=== PATIENT | male | born 1990 | race Caucasian/White ===

== ENCOUNTER 2019-10-09 20:50 | Inpatient (IN) | payer SELFPAY | END 2019-10-10 20:04 | disposition home or self-care (01) | DRG 880 | LOC: NP 10-10 09:54 | PROVIDERS: Emergency Provider Emergency Medicine; PCP Family Medicine; Referring Provider Family Medicine | DX: F68.8 Other specified disorders of adult personality and behavior (principal); R45.851 Suicidal ideations | CPT/HCPCS: 99234 ==

== ENCOUNTER 2020-05-20 10:14 | Emergency (ER) | payer SELFPAY ==
[2020-05-20 10:30] VITALS: BP 129/88; PULSE 85; RESP 18; TEMP 36.6; O2SAT 97; BMI 41.5
--- NOTE | 2020-05-20 10:47 | W.ED.ABDPA2 ---
HPI - Abdominal Pain General: Chief Complaint: Abdominal Pain Stated Complaint: abd pain Time Seen by Provider: 05/20/20 10:41 History of Present Illness: HPI narrative: Patient is a 29-year-old male who comes to the ED with abdominal pain, nausea and vomiting. Abdominal pain started on Wednesday. Is located in the right upper quadrant region the abdomen and he describes it as sharp. He has had multiple episodes of emesis since Wednesday. This morning he woke up and has nausea and abdominal pain was worse so he came to the ED to get evaluated. Denies any past abdominal surgeries. Denies any diarrhea, constipation, dysuria, hematuria, acid reflux, chest pain, shortness of breath, upper respiratory symptoms, fever and chills. Patient also denies any marijuana use. Associated Symptoms: Reports nausea and vomiting; Denies chills, constipation, diarrhea, dysuria, fever(s), hematochezia and hematuria Review of Systems Const: Denies: fever(s), chills or fatigue Eyes: Denies: change in vision or eye discomfort ENMT: Denies: throat pain, odynophagia, nasal discharge or nasal congestion Card: Denies: chest pain, palpitations, edema, swelling of feet/ankles, dyspnea on exertion or orthopnea Resp: Denies: dyspnea, productive cough or non-productive cough GI: Reports: abdominal pain, nausea and vomiting; Denies: diarrhea, constipation or hematochezia : Denies: flank pain, difficulty urinating, dysuria or hematuria Musc: Denies: neck pain, back pain or extremity swelling Skin/Breast: Denies: rash or new lesions Neuro: Denies: headache(s), numbness in extremities or weakness in extremities PFS ED PFSH: Social History Smoking and tobacco status: current every day smoker smokeless tobacco Physical Exam Const: COMMON NORMALS: no acute distress, patient oriented x3 and alert GENERAL APPEARANCE: cooperative and comfortable HENMT: COMMON NORMALS: normocephalic HEAD & SCALP: normocephalic MOUTH: Normal oral and palatal mucosa present THROAT: posterior oropharynx normal and uvula midline Eye: COMMON NORMALS: Equal, round and reactive pupils present and conjunctivae normal CONJUNCTIVA: Yes conjunctivae normal PUPIL: Yes Equal, round and reactive pupils present Neck/C-Spine: COMMON NORMALS: supple GENERAL: Yes normal visual inspection Resp: COMMON NORMALS: normal respiratory effort, No retractions, No use of accessory muscles and clear to auscultation bilaterally AUSCULTATION: clear to auscultation bilaterally Cardio: COMMON NORMALS: regular rate, regular rhythm, S1 normal heart sound present, S2 normal heart sound present, No gallops present (Cardio), No clicks present (Cardio), No murmurs present (Cardio) and Peripheral pulses 2+ throughout RATE: regular rate RHYTHM: regular rhythm HEART SOUNDS: S1 normal heart sound present and S2 normal heart sound present PERIPHERAL PULSES: Peripheral pulses 2+ throughout GI: COMMON NORMALS: Normal to inspection, nondistended, normoactive bowel sounds present, Soft to palpation and no masses PALPATION: Yes Soft to palpation and Yes Tenderness to palpation present (GI) Details: RUQ (Jackson sign positive) : COMMON NORMALS: Yes no CVA tenderness BLADDER/KIDNEY EXAM: Yes no CVA tenderness Back/Pelvis: COMMON NORMALS: no CVA tenderness Extremity: COMMON NORMALS: normal to inspection and no pedal edema Neuro: COMMON NORMALS: patient oriented x3 SENSORIUM/ORIENTATION: Yes alert GAIT: Yes Normal gait present Skin: COMMON NORMALS: no rashes or lesions noted GENERAL SKIN EXAM: no rashes or lesions noted and dry skin Course Reevaluation(s): Reevaluation #1: After IV fluids, nausea meds and pain meds patient was feeling a lot better and was able to keep p.o. fluids down while here in the ED. Vital Signs: Vital signs: Vital Signs Temperature 97.9 F 05/20/20 10:30 Pulse Rate 91 05/20/20 12:53 Respiratory Rate 18 05/20/20 12:53 Blood Pressure 112/57 05/20/20 12:53 Pulse Oximetry 98 05/20/20 12:53 MDM - Abdominal Pain MDM Narrative: Medical decision making narrative: Patient is a 29-year-old ED with nausea vomiting and right upper quadrant abdominal pain. Physical exam was remarkable for right upper quadrant tenderness and positive Jackson sign. CBC, CMP and UA were all unremarkable. Lipase was 20. Ultrasound of the gallbladder showed mild hepatomegaly, but gallbladder was normal, no gallstones seen and bile duct was normal. Patient's nausea pain were controlled with IV fluids, nausea meds and pain meds. Patient felt better and was able to keep fluids down here in the ED. Patient was discharged with biliary colic and given prescription for Zofran for nausea. Follow-up with PCP in 7 to 10 days for reevaluation. Return to ED precautions given. Patient understood and agreed with plan. Lab Data: Attestation: I reviewed the patient's lab results. Labs: Lab Results 05/20/20 05/20/20 05/20/20 Range/Units 11:05 11:05 11:08 WBC 9.7 (4.0-10.0) 10^3/ uL RBC 5.68 H (4.1-5.3) 10^6/u L Hgb 16.5 (11.7-16.6) g/dL Hct 49.6 (42.0-52.0) % MCV 87.3 (80-94) fL MCH 29.0 (28.0-34.0) pg MCHC 33.3 (30.0-36.0) g/dL RDW 12.3 (12.1-15.1) % Plt Count 352 (130-400) 10^3/c mm MPV 9.0 (7.4-10.4) fL Neut % (Auto) 70.8 % Lymph % (Auto) 18.2 % [place] % (Auto) 6.9 % Eos % (Auto) 3.3 % Baso % (Auto) 0.6 % Neut # (Auto) 6.82 (1.8-7.7) 10^3/u L Lymph # (Auto) 1.8 (0.8-4.8) 10^3/u L [place] # (Auto) 0.7 (0.2-0.9) 10^3/u L Eos # (Auto) 0.3 (0.0-0.8) 10^3/u L Baso # (Auto) 0.1 (0.0-0.1) 10^3/u L Nucleated RBC % (a uto) 0 % Nucleated RBCs # 0.0 /100WBC Sodium 137 (136-145) mmol/L Potassium 3.5 (3.5-5.1) mmol/L Chloride 102 (98-107) mmol/L Carbon Dioxide 25 (22-29) mmol/L Anion Gap 13.5 (5-19) BUN 8 (6-20) mg/dL Creatinine 0.9 (0.7-1.2) mg/dL GFR Calculation 101.2 (90-130) mL/min Glucose 121 H (65-115) mg/dL Calculated Osmolal ity 281 L (285-295) mOsm/k g Calcium 10.2 (8.5-10.5) mg/dL Total Bilirubin 0.6 (0.15-1.2) mg/dL AST 11 (0-40) U/L ALT 8 (0-41) U/L Alkaline Phosphata se 68 (40-130) IU/L Total Protein 7.5 (6.6-8.7) g/dL Albumin 4.3 (3.5-5.2) g/dL Globulin 3.2 (1.3-4.6) g/dL Lipase 20 (13-60) U/L Urine Color Yellow (Yellow) Urine Appearance Clear (CLEAR) Urine pH 5 (5-7) Ur Specific Gravit y 1.030 (1.005-1.030) Urine Protein Neg (Negative) Urine Glucose (UA) Norm (Normal) Urine Ketones Negative (Negative) Urine Blood Neg (Negative) Urine Nitrate Negative (Negative) Urine Bilirubin Neg (NEGATIVE) Urine Urobilinogen 1 H (Negative) mg/dL Ur Leukocyte Teresa ase Negative (Negative) Imaging Data ^: US: Attestation: I personally reviewed and interpreted this imaging study as follows: Radiologist's impression: [address] [address] Ultrasound Report Signed Patient: Rudy Velazquez Unit #: [id number] : 1990 Age/Sex: 29 / M ADM Date: 05/20/20 Loc: ER Room/Bed: Attending Dr: Ordering Provider/Ordering MD: Jessee Vergara Date of Service: 05/20/20 Procedure(s): US gall bladder [id number] Accession Number(s): [id number] Report Number: [id number] WS: [id number] ULTRASOUND ABDOMEN LIMITED CLINICAL INFORMATION: RUQ pain and n/v COMPARISON: None. FINDINGS: Liver Size: Mild hepatomegaly Craniocaudal length: 17.1 cm. Echogenicity: Normal. Surface nodularity: None. Mass (size and location): None. Bile ducts Intrahepatic ducts: Normal. Common bile duct diameter: 0.3 cm. Gallbladder Normal. Gallstones: None. Gallbladder sludge: None. Gallbladder wall thickening: None. Pericholecystic fluid: None. Sonographic Jackson sign: Absent. Pancreas Normal as visualized. Right kidney: Normal. Hydronephrosis: None. Size: 10.2 cm x 5.0 cm x 5.9 cm. Abdominal aorta and IVC Visualized portions are normal. Ascites: None. US/US gall bladder [id number] IMPRESSION: 1. Mild hepatomegaly. No intrahepatic biliary ductal dilatation. 2. Normal gallbladder. Normal common bile duct 3. No hydronephrosis in right kidney. Dictated By: Beau Nino MD Signed By: Beau Nino MD Signed Date/Time: 05/20/201213 DD/ 11 Discharge Plan Discharge Patient Disposition: Home Clinical Impression: Biliary colic symptom Condition: Stable Prescriptions: New Zofran 4 mg tablet 4 mg PO Q8H Qty: 15 RF: 0 No Action No Known Home Medications RF: 0 Discharge Orders: Discharge Order (Routine); Ordered 05/20/20 Ordered By: Jessee Vergara Referrals: Winnie León MD [Primary Care Provider] - Discharge Diet: Advance as tolerated Discharge Activity: Increase activity as tolerated Patient Instructions: Biliary Colic (ED), Clear Liquid Diet (ED) Activity Restrictions/Additional Instructions: Follow-up with medical provider as directed in 5-7 days. Take medications as prescribed. Take Tylenol or ibuprofen for pain. For the next 24 hours to a clear liquid diet and advance diet as tolerated. Return to the ER or your medical provider if condition worsens. Please read and understand discharge instructions. If any questions, please ask. Discharge Date/Time: 05/20/20 12:55 Coding Level of Care Code ED Guide [place] for [facility] Fwd Exam Comprehensive
[2020-05-20 11:12] LABS: Basophils # 0.1 10^3/uL (0.0-0.1); Basophils % 0.6 %; Eosinophils # 0.3 10^3/uL (0.0-0.8); Eosinophils % 3.3 %; Hematocrit 49.6 % (42.0-52.0); Hemoglobin 16.5 g/dL (11.7-16.6); Lymphocytes # 1.8 10^3/uL (0.8-4.8); Lymphocytes % 18.2 %; Mean Corpuscular HGB Conc 33.3 g/dL (30.0-36.0); Mean Corpuscular Volume 87.3 fL (80-94); Monocytes # 0.7 10^3/uL (0.2-0.9); Monocytes % 6.9 %; Neutrophils # 6.82 10^3/uL (1.8-7.7); Neutrophils % 70.8 %; Nucleated Red Blood Cells % 0 %; Platelet Count 352 10^3/cmm (130-400); Red Blood Count 5.68 10^6/uL (4.1-5.3); Red Cell Distribution Width 12.3 % (12.1-15.1); White Blood Count 9.7 10^3/uL (4.0-10.0)
[2020-05-20] MEDS: sodium chloride 0.9% 1,000 ML 999 ML IV (11:16)
[2020-05-20] MEDS: ondansetron 2 mg/ML SDV 2 mL 4 MG IVP (11:16)
--- NOTE | 2020-05-20 11:21 | US_ITS ---
WS: [id number] ULTRASOUND ABDOMEN LIMITED CLINICAL INFORMATION: RUQ pain and n/v COMPARISON: None. FINDINGS: Liver Size: Mild hepatomegaly Craniocaudal length: 17.1 cm. Echogenicity: Normal. Surface nodularity: None. Mass (size and location): None. Bile ducts Intrahepatic ducts: Normal. Common bile duct diameter: 0.3 cm. Gallbladder Normal. Gallstones: None. Gallbladder sludge: None. Gallbladder wall thickening: None. Pericholecystic fluid: None. Sonographic Jackson sign: Absent. Pancreas Normal as visualized. Right kidney: Normal. Hydronephrosis: None. Size: 10.2 cm x 5.0 cm x 5.9 cm. Abdominal aorta and IVC Visualized portions are normal. Ascites: None. US/US gall bladder [id number] IMPRESSION: 1. Mild hepatomegaly. No intrahepatic biliary ductal dilatation. 2. Normal gallbladder. Normal common bile duct 3. No hydronephrosis in right kidney.
[2020-05-20 11:26] VITALS: RESP 17
[2020-05-20] MEDS: morphine 4 mg/mL SDV 1 mL IVP (11:26)
[2020-05-20 11:33] LABS: Alanine Aminotransferase 8 U/L (0-41); Albumin Level 4.3 g/dL (3.5-5.2); Alkaline Phosphatase 68 IU/L (40-130); Anion Gap 13.5 (5-19); Aspartate Amino Transferase 11 U/L (0-40); Blood Urea Nitrogen 8 mg/dL (6-20); Calcium 10.2 mg/dL (8.5-10.5); Carbon Dioxide 25 mmol/L (22-29); Chloride 102 mmol/L (98-107); Creatinine Clr Calc Pharmacy 143.4458; Globulin 3.2 g/dL (1.3-4.6); Glomerular Filtration Rate 101.2 mL/min (90-130); Glucose 121 mg/dL (65-115); Lipase 20 U/L (13-60); Osmolality Calculated 281 mOsm/kg (285-295); Potassium 3.5 mmol/L (3.5-5.1); Sodium 137 mmol/L (136-145); Total Bilirubin 0.6 mg/dL (0.15-1.2); Total Protein 7.5 g/dL (6.6-8.7)
[2020-05-20 11:39] LABS: Add Urine Microscopic? NO
[2020-05-20 12:05] LABS: Bilirubin Urine Neg (NEGATIVE); Blood Urine Neg (Negative); Glucose Urine UA Norm (Normal); Ketones Urine Negative (Negative); Leukocyte Esterase Urine Negative (Negative); Nitrate Urine Negative (Negative); Protein Urine Neg (Negative); Urine Appearance Clear (CLEAR); Urine Color Yellow (Yellow); Urobilinogen Urine 1 mg/dL (Negative); pH Urine 5 (5-7)
[2020-05-20 12:25] VITALS: RESP 18
[2020-05-20] MEDS: HYDROmorphone 1 mg/mL INJ 1 mL 0.5 MG IVP (12:25)
[2020-05-20] MEDS: metoclopramide 5 mg/mL SDV 2 mL 10 MG IVP (12:26)
[2020-05-20 12:53] VITALS: BP 112/57; PULSE 91; RESP 18; O2SAT 98
== END 2020-05-20 12:55 | disposition home or self-care (01) ==
PROVIDERS: Emergency Provider Physician Assistant; PCP Family Medicine
DX: R10.9 Unspecified abdominal pain (principal); F17.220 Nicotine dependence, chewing tobacco, uncomplicated
CPT/HCPCS: 12345; 76705; 80053; 81003; 83690; 85025; 87040; 96361; 96374; 96375; 99283; J1170; J2270; J2405; J2765; J7030

== ENCOUNTER 2020-05-21 03:50 | Inpatient (IN) | payer SELFPAY ==
[2020-05-21] VITALS (23 sets, daily range): BP systolic 98–142; BP diastolic 56–88; PULSE 47–95; RESP 15–20; TEMP 36.3–37.2; O2SAT 96–100; BMI 35.7
--- NOTE | 2020-05-21 04:06 | CTR_ITS ---
PROCEDURE INFORMATION: Exam: CT Abdomen And Pelvis With Contrast Exam date and time: 05/21/2020 4:30 AM Age: 29 years old Clinical indication: Abdominal pain; Localized; Right upper quadrant (ruq) TECHNIQUE: Imaging protocol: Computed tomography of the abdomen and pelvis with intravenous contrast. Radiation optimization: All CT scans at this facility use at least one of these dose optimization techniques: automated exposure control; mA and/or kV adjustment per patient size (includes targeted exams where dose is matched to clinical indication); or iterative reconstruction. Contrast material: OMNI 300; Contrast volume: 95 ml; Contrast route: INTRAVENOUS (IV); COMPARISON: US gall bladder [id number] 05/20/2020 11:34 AM RADIATION DOSE METRICS: Total DLP (mGy-cm): 1198.08 FINDINGS: Liver: Focal fatty change is seen near the falciform ligament. No mass. Gallbladder and bile ducts: Normal. No calcified stones. No ductal dilation. Pancreas: Normal. No ductal dilation. Spleen: Normal. No splenomegaly. Adrenals: Tiny calcifications are seen in the right adrenal. No mass. Kidneys and ureters: Normal. No hydronephrosis. Stomach and bowel: An ileocolic intussusception is seen in the ascending colon with a possible 2 cm lipoma on is stalk as the lead point. Edema of the bowel wall is present. No proximal small bowel dilatation is seen. The distal colon is collapsed. Appendix: The appendix is not identified a. Intraperitoneal space: Unremarkable. No free air. Small amount of free fluid is seen in the pelvis a. Vasculature: Unremarkable. No abdominal aortic aneurysm. Lymph nodes: Unremarkable. No enlarged lymph nodes. Bladder: Unremarkable as visualized. Reproductive: Unremarkable as visualized. Bones/joints: Unremarkable. No acute fracture. Soft tissues: Unremarkable. CT/CT abdomen pelvis w con* [id number] IMPRESSION: An ileocolic intussusception is present as described. Surgical consult is recommended. Radiation Dose CTDIVOL = (mGy): DLP = 1198.08 (mGy-cm)
[2020-05-21] MEDS: ondansetron 2 mg/ML SDV 2 mL 4 MG IVP ×2 (04:19→10:40)
[2020-05-21] MEDS: sodium chloride 0.9% 1,000 ML 999 ML IV (04:19)
[2020-05-21 04:30] LABS: Basophils % 0.2 %; Hematocrit 48.8 % (42.0-52.0); Hemoglobin 16.5 g/dL (11.7-16.6); Lymphocytes # 1.3 10^3/uL (0.8-4.8); Lymphocytes % 6.6 %; Mean Corpuscular HGB Conc 33.8 g/dL (30.0-36.0); Mean Corpuscular Hemoglobin 29.2 pg (28.0-34.0); Mean Corpuscular Volume 86.2 fL (80-94); Mean Platelet Volume 9.3 fL (7.4-10.4); Monocytes # 0.7 10^3/uL (0.2-0.9); Monocytes % 3.8 %; Neutrophils # 16.76 10^3/uL (1.8-7.7); Nucleated Red Blood Cells % 0 %; Platelet Count 416 10^3/cmm (130-400); Red Blood Count 5.66 10^6/uL (4.1-5.3); White Blood Count 18.8 10^3/uL (4.0-10.0)
[2020-05-21 04:41] LABS: H. Pylori IgG Antibody Negative (Negative)
[2020-05-21 04:47] LABS: Alanine Aminotransferase 11 U/L (0-41); Albumin Level 4.4 g/dL (3.5-5.2); Alkaline Phosphatase 66 IU/L (40-130); Anion Gap 13.8 (5-19); Aspartate Amino Transferase 17 U/L (0-40); Blood Urea Nitrogen 8 mg/dL (6-20); Carbon Dioxide 27 mmol/L (22-29); Chloride 94 mmol/L (98-107); Globulin 2.9 g/dL (1.3-4.6); Glomerular Filtration Rate 101.2 mL/min (90-130); Glucose 128 mg/dL (65-115); Lipase 19 U/L (13-60); Osmolality Calculated 270 mOsm/kg (285-295); Potassium 3.8 mmol/L (3.5-5.1); Sodium 131 mmol/L (136-145); Total Bilirubin 0.7 mg/dL (0.15-1.2); Total Protein 7.3 g/dL (6.6-8.7)
--- NOTE | 2020-05-21 04:51 | ED_ITS ---
HPI - Abdominal Pain General: Chief Complaint: Abdominal Pain Stated Complaint: ABDOMINAL PAIN Time Seen by Provider: 05/21/20 04:04 Source: patient Mode of arrival: ambulatory Limitations: no limitations History of Present Illness: HPI narrative: Rudy is a 29-year-old male who comes in complaining of diffuse abdominal pain. Patient was here earlier in the day and had complaints of pain in the epigastric and right upper quadrant. His ultrasound at that time was negative. His labs are unremarkable. He states his pain resolved. Since leaving his pain is returned and has remained constant. He describes pain diffusely throughout his abdomen. He has associated nausea and vomiting but denies any diarrhea or constipation. He denies any urinary symptoms. He denies any back or flank pain. He is unaware of anything that makes his symptoms better or worse. The pain is been constant now for several hours he believes at least 5 to 6 hours. Associated Symptoms: Reports nausea and vomiting; Denies chills, coffee ground emesis, constipation, GI cramping, diarrhea, dysuria, fever(s), heartburn, hematochezia, hematuria, hematemesis, melena and syncope Review of Systems Const: Denies: fever(s), chills, body aches, fatigue, malaise or diaphoresis Eyes: Denies: change in vision, blurry vision, blind spots, photophobia, eye discharge or eye redness ENMT: Denies: throat pain, odynophagia, hoarseness, swelling of lips/tongue, oral sores, ear or mastoid pain, ear discharge, change in hearing or nasal discharge Card: Denies: chest pain, palpitations, irregular heart rhythm, edema, lightheadedness, syncope, pre-syncope, dyspnea on exertion or orthopnea Resp: Denies: dyspnea, productive cough, non-productive cough, wheezing, hemoptysis or chest congestion GI: Reports: abdominal pain, nausea and vomiting; Denies: hematemesis, coffee ground emesis, heartburn, diarrhea, constipation, GI cramping, hematochezia or melena : Denies: flank pain, dysuria, urinary frequency, urinary urgency or hematuria Musc: Denies: neck pain, back pain, extremity pain, extremity swelling, joint pain, joint swelling, joint redness, joint warmth or joint stiffness Skin/Breast: Denies: rash, pruritus, erythema, skin tenderness or jaundice Neuro: Denies: headache(s), numbness in extremities, weakness in extremities, sensory changes, lack of coordination, difficulty walking, dizziness, vertigo, confusion, Slurred speech present or seizure-like activity Chance/Lymph: Denies: easy bruising, easy bleeding, petechiae, purpura or enlarged lymph nodes All/Imm: Denies: urticaria, throat swelling, tongue swelling, facial swelling or acute wheezing PFSH ED PFSH: Medical History (Updated 05/21/20 @ 05:22 by Trena Montoya) No pertinent past medical history Social History Smoking and tobacco status: current every day smoker smokeless tobacco Physical Exam Const: COMMON NORMALS: no acute distress, patient oriented x3, no limitations, healthy appearing and well nourished GENERAL APPEARANCE: cooperative, well kempt and well developed HENMT: COMMON NORMALS: normocephalic, atraumatic, external ears normal, EAC's normal and Normal external nose present HEAD & SCALP: normal to inspection, normocephalic and atraumatic FACE & SINUS: normal facial exam and face symmetric NOSE: Normal external nose present and Normal nares present EXTERNAL EAR: Yes external ears normal EXTERNAL AUDITORY CANAL: EAC's normal MOUTH: Normal oral and palatal mucosa present, lip normal and tongue normal Eye: COMMON NORMALS: Equal, round and reactive pupils present and conjunctivae normal GENERAL EYE: appearance normal, both eyes and all related structures ALIGNMENT: Yes alignment normal PERIORBITAL: periorbital findings normal EYELID: eyelids normal CONJUNCTIVA: Yes conjunctivae normal SCLERA: sclerae normal PUPIL: Yes Equal, round and reactive pupils present Neck/C-Spine: COMMON NORMALS: full ROM, no lymphadenopathy, supple, no meningeal signs and no JVD GENERAL: Yes normal visual inspection and Yes trachea midline Chest: COMMONS NORMALS: normal inspection of the chest and normal palpation of entire chest wall Resp: COMMON NORMALS: normal respiratory effort, No retractions and No use of accessory muscles EFFORT & INSPECTION: Yes able to speak in complete sentences and Yes symmetric chest movement AUSCULTATION: no crackles, no rales, no rhonchi and no wheezes Cardio: COMMON NORMALS: no JVD, regular rate, regular rhythm, S1 normal heart sound present and S2 normal heart sound present RATE: regular rate RHYTHM: regular rhythm HEART SOUNDS: S1 normal heart sound present, S2 normal heart sound present, no click, no gallops, no murmurs, no rubs and abnormal split S2 GI: COMMON NORMALS: Soft to palpation and No hepatosplenomegaly present PALPATION: Yes Soft to palpation, Yes Tenderness to palpation present (GI) (Moderate to severely tender diffusely.), No Guarding due to palpation present (GI), No Rigid due to palpation, Yes No hepatosplenomegaly present, No Hernia present, No Palpable mass present and No Pulsatile mass present : COMMON NORMALS: Yes no CVA tenderness BLADDER/KIDNEY EXAM: Yes no CVA tenderness Back/Pelvis: COMMON NORMALS: no CVA tenderness, thoracic and lumbar spine normal to inspection, no thoracic nor lumbar tenderness and thoraco-lumbar ROM normal Extremity: COMMON NORMALS: normal to inspection, full ROM, capillary refill normal, no joint enlargement, no clubbing, cyanosis or edema and no calf tenderness Neuro: COMMON NORMALS: patient oriented x3, CN's II-XII intact bilaterally, moves all extremities, no focal motor deficits and no sensory deficits noted MENINGEAL SIGNS: Yes no meningeal signs SPEECH: speech normal Psych: COMMON NORMALS: mental status grossly normal, Normal thought process present, cooperative, normal affect, speech normal and activity/motor behavior normal APPEARANCE: Yes well kempt SPEECH: Yes normal speech THOUGHT PROCESS: Normal thought process present Skin: COMMON NORMALS: no rashes or lesions noted, turgor normal, no jaundice, no petechiae and no mottling GENERAL SKIN EXAM: no rashes or lesions noted and turgor normal Course Vital Signs: Vital signs: Vital Signs Temperature 98.6 F 05/21/20 03:58 Pulse Rate 54 L 05/21/20 04:55 Respiratory Rate 20 H 05/21/20 04:55 Blood Pressure 137/77 05/21/20 04:55 Pulse Oximetry 99 05/21/20 04:55 MDM - Abdominal Pain MDM Narrative: Medical decision making narrative: CT findings and case were reviewed with Dr. Goode, he agrees admit the patient and plans to take to the OR later today. Currently the patient is not in pain. I will give him prophylactic antibiotics and further care will be dictated by Dr. Goode. Lab Data: Attestation: I reviewed the patient's lab results. Labs: Lab Results 05/21/20 05/21/20 05/21/20 Range/Units 04:20 04:20 04:20 WBC 18.8 H (4.0-10.0) 10^3/ uL RBC 5.66 H (4.1-5.3) 10^6/u L Hgb 16.5 (11.7-16.6) g/dL Hct 48.8 (42.0-52.0) % MCV 86.2 (80-94) fL MCH 29.2 (28.0-34.0) pg MCHC 33.8 (30.0-36.0) g/dL RDW 12.0 L (12.1-15.1) % Plt Count 416 H (130-400) 10^3/c mm MPV 9.3 (7.4-10.4) fL Neut % (Auto) 89.0 % Lymph % (Auto) 6.6 % [place] % (Auto) 3.8 % Eos % (Auto) 0.0 % Baso % (Auto) 0.2 % Neut # (Auto) 16.76 H (1.8-7.7) 10^3/u L Lymph # (Auto) 1.3 (0.8-4.8) 10^3/u L [place] # (Auto) 0.7 (0.2-0.9) 10^3/u L Eos # (Auto) 0.0 (0.0-0.8) 10^3/u L Baso # (Auto) 0.0 (0.0-0.1) 10^3/u L Nucleated RBC % (a uto) 0 % Nucleated RBCs # 0.0 /100WBC Sodium 131 L (136-145) mmol/L Potassium 3.8 (3.5-5.1) mmol/L Chloride 94 L (98-107) mmol/L Carbon Dioxide 27 (22-29) mmol/L Anion Gap 13.8 (5-19) BUN 8 (6-20) mg/dL Creatinine 0.9 (0.7-1.2) mg/dL GFR Calculation 101.2 (90-130) mL/min Glucose 128 H (65-115) mg/dL Calculated Osmolal ity 270 L (285-295) mOsm/k g Calcium 10.0 (8.5-10.5) mg/dL Total Bilirubin 0.7 (0.15-1.2) mg/dL AST 17 (0-40) U/L ALT 11 (0-41) U/L Alkaline Phosphata se 66 (40-130) IU/L Total Protein 7.3 (6.6-8.7) g/dL Albumin 4.4 (3.5-5.2) g/dL Globulin 2.9 (1.3-4.6) g/dL Lipase 19 (13-60) U/L H. pylori IgG Anti body Negative (Negative) Imaging Data ^: CT Abd/Pel: Radiologist's impression: [place] [address] CT Scan Report Signed Patient: Evaristo Velazquez #: [id number] : 1990Acct#:[id number] Age/Sex: 29 / MADM Date: 05/21/20 Loc: ERRoom/Bed: Attending Dr: Ordering Provider/Ordering MD: Trena Montoya DO Date of Service: 05/21/20 Procedure(s): CT abdomen pelvis w con* [id number] Accession Number(s): [id number] Report Number: [id number] PROCEDURE INFORMATION: Exam: CT Abdomen And Pelvis With Contrast Exam date and time: 05/21/2020 4:30 AM Age: 29 years old Clinical indication: Abdominal pain; Localized; Right upper quadrant (ruq) TECHNIQUE: Imaging protocol: Computed tomography of the abdomen and pelvis with intravenous contrast. Radiation optimization: All CT scans at this facility use at least one of these dose optimization techniques: automated exposure control; mA and/or kV adjustment per patient size (includes targeted exams where dose is matched to clinical indication); or iterative reconstruction. Contrast material: OMNI 300; Contrast volume: 95 ml; Contrast route: INTRAVENOUS (IV); COMPARISON: US gall bladder [id number] 05/20/2020 11:34 AM RADIATION DOSE METRICS: Total DLP (mGy-cm): 1198.08 FINDINGS: Liver: Focal fatty change is seen near the falciform ligament. No mass. Gallbladder and bile ducts: Normal. No calcified stones. No ductal dilation. Pancreas: Normal. No ductal dilation. Spleen: Normal. No splenomegaly. Adrenals: Tiny calcifications are seen in the right adrenal. No mass. Kidneys and ureters: Normal. No hydronephrosis. Stomach and bowel: An ileocolic intussusception is seen in the ascending colon with a possible 2 cm lipoma on is stalk as the lead point. Edema of the bowel wall is present. No proximal small bowel dilatation is seen. The distal colon is collapsed. Appendix: The appendix is not identified a. Intraperitoneal space: Unremarkable. No free air. Small amount of free fluid is seen in the pelvis a. Vasculature: Unremarkable. No abdominal aortic aneurysm. Lymph nodes: Unremarkable. No enlarged lymph nodes. Bladder: Unremarkable as visualized. Reproductive: Unremarkable as visualized. Bones/joints: Unremarkable. No acute fracture. Soft tissues: Unremarkable. CT/CT abdomen pelvis w con* [id number] IMPRESSION: An ileocolic intussusception is present as described. Surgical consult is recommended. Radiation Dose CTDIVOL = (mGy): DLP = 1198.08 (mGy-cm) Dictated By:Dani Cintron Signed By:Conrad Cintronigned Date/Time:05/21/20 050 DD/ 050 Discharge Plan Discharge Patient Disposition: Admitted As Inpatient Clinical Impression: Intussusception of small bowel Condition: Stable Prescriptions: No Action No Known Home Medications RF: 0 Zofran 4 mg tablet 4 mg PO Q8H Qty: 15 RF: 0 Referrals: Winnie León MD [Primary Care Provider] - Coding Level of Care Code ED Animal Physiologist for Zan Conroy
[2020-05-21] MEDS: ciprofloxacin 400 MG/200 ML PREMIX 200 MG IV (05:28)
--- NOTE | 2020-05-21 05:40 | PC.NURSE ---
Report called to Andre- will call me back when patient clear to go to room
[2020-05-21] MEDS: morphine 4 mg/mL SDV 1 mL IVP ×2 (06:15→10:41)
[2020-05-21] MEDS: metroNIDAZOLE IV 500 MG/100 ML PREMIX 100 MG IV ×3 (06:30→21:22)
[2020-05-21 07:00] LABS: Bilirubin Urine 1+ (NEGATIVE); Blood Urine Neg (Negative); Glucose Urine UA Norm (Normal); Ketones Urine 2+ (Negative); Leukocyte Esterase Urine Negative (Negative); Nitrate Urine Negative (Negative); Protein Urine Trace (Negative); Urine Appearance Clear (CLEAR); Urine Color Yellow (Yellow); Urobilinogen Urine 1 mg/dL (Negative); pH Urine 6.5 (5-7)
[2020-05-21 07:02] LABS: Add Urine Culture? No; Bacteria Urine TRACE; Mucus Urine 2+; RBC Urine RARE /hpf (0-2); Squamous Epithelial Cell Urine RARE (0-5); WBC Urine 0-4 /hpf (0-5)
[2020-05-21 07:18] LABS: Partial Thromboplastin Time 32.4 SECONDS (23.9-36.7)
--- NOTE | 2020-05-21 07:41 | PM.HP ---
Providers/Chief Complaint Admitting Physician: Robson Goode MD Primary Care Provider: Winnie León, Chief Complaint: ABDOMINAL PAIN History of Present Illness Rudy Velazquez is a 29 year old male who started having epigastric pain 3 days ago. The pain has worsened and the patient developed nausea and vomited several times. There was no evidence of hematemesis. He denies any history of heartburn or antacid use. He had his last bowel movement the day prior to the pain starting. He says he still passing a small amount of flatus but not as much as normal. Last time he ate anything was yesterday morning. The patient actually The patient was currently spending 10 days in retirement for failure to pay fines. He was brought to the emergency room and a CAT scan showed ileocecal intussusception. He has already been released on his own recognizance. The patient mentions that this happened to him one other time about a month and a half ago but it did not last as long. Review of Systems General: Reports: 10 or more systems reviewed and unremarkable except in HPI and below Const: Denies: fever(s) GI: Reports: abdominal pain, nausea and vomiting Psych: Reports: anxiety Medications/Allergies Home Medications Medication Instructions Recorded Confirmed Last Taken Type No Known Home Medications 05/20/20 05/20/20 Unknown History ondansetron HCl [Zofran] 4 mg PO Q8H #15 tab 05/20/20 Unknown Rx Allergies Allergy/AdvReac Type Severity Reaction Status Date / Time amoxicillin AdvReac swelling Verified 05/21/20 07:59 cefazolin [From Ancef] AdvReac Patient Verified 05/21/20 07:59 cannot recall reaction PFSH Acute PFSH: Medical History (Updated 05/21/20 @ 07:52 by Robson Goode MD) No pertinent past medical history Surgical History (Updated 05/21/20 @ 07:52 by Robson Goode MD) Leg fracture, right R lower leg hardware Social History (Updated 05/21/20 @ 08:01 by Robson Goode MD) Smoking and tobacco status: never smoked Alcohol intake: current Alcohol type: beer Alcohol use comment: 3-4 beers nightly Vitals/I&O/Wt Last Vital Signs Temp 98.7 F 05/21/20 07:27 Pulse 47 L 05/21/20 07:27 Resp 18 05/21/20 07:27 BP 141/81 05/21/20 07:27 Pulse Ox 98 05/21/20 07:27 Weight last 48 hrs Weight 215 lb Physical Exam Narrative: EXAM NARRATIVE: The patient was encountered in his hospital room. He does not appear to be in any acute distress. The pupils seem equal. No carotid bruits are heard. The lungs are clear anteriorly. The heart is regular. The abdomen reveals few bowel sounds but is soft and nondistended. The patient does have moderate epigastric tenderness but does not seem to have tenderness anywhere else in the abdomen. No obvious masses are palpated but firm palpation of the epigastrium could not be done due to the patient's discomfort. The extremities reveal no edema. Neurologically the patient appears to be grossly intact. Data : 05/21/20 04:20 05/21/20 04:20 CT Abd/Pel: Radiologist's impression: CT abdomen/pelvis 05/21/2020 iMPRESSION: An ileocolic intussusception is present as described. Surgical consult is recommended. A&P Assessment and plan (1) Intussusception of small bowel: I agree with the findings on the CAT scan. 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 It is curious to me that the patient seems to have more epigastric tenderness than right-sided tenderness, however. I have discussed intussusception with the patient in some detail. I have told the patient that even if this were to get better spontaneously, it is very likely to come back. We discussed surgery with the probable need for intestinal resection in addition to the surgical risks of bleeding, infection, internal organ injury, anastomotic leak with possible need for reoperation, etc. The patient seems to understand and would like to proceed with surgery. Status: Acute Attestations Medical Necessity Statement*: Based on my medical assessment, presenting symptoms, medical accuity and consideration of surgical therapy, I expect this patient will require treatment in the hospital for a period spanning at least 2 midnights. Coding Level of Care Code Acute Knife Grinder for Zan Conroy Diagnoses Intussusception of small bowel K56.1
[2020-05-21] MEDS: sodium chloride 0.9% 1,000 ML 100 ML IV (07:44)
--- NOTE | 2020-05-21 09:01 | PC.NURSE ---
Prep for surgery. patient used cholrahexadine wipes. consent signed. scds and erika moody applied. iv intact and patent (18 guage). SMW, RUBBER BOOTS AND SHOES REPAIRER
--- NOTE | 2020-05-21 10:32 | ANES.PREANE2 ---
Pre-Anesthetic Assessment Pre-Anesthetic Assessment: Height/Weight: Height 1.65 m Weight 97.522 kg Temp Pulse Resp BP Pulse Ox 98.9 F 48 L 16 135/87 100 05/21/20 10:17 05/21/20 10:17 05/21/20 10:17 05/21/20 10:17 05/21/20 10:17 Preop Diagnosis: Abdominal mass Proposed Procedure: Operation Date: 05/21/20 11:00 Proposed Procedures p Exploratory Laparotomy(Not Applicable) - Robson Goode MD s Hemicolectomy(Not Applicable) - Robson Goode MD Familial anesthetic complications: woke up near the end of lower extremity surgery Last intake: Intake Last Liquid Date 05/21/20 Last Liquid Time 04:00 Last Solid Date 05/19/20 Last Solid Time 10:00 Social: Social History: No alcohol and No tobacco Exam: Pre-Anes Outpt Exam: alert, oriented x 3, clear to auscultation bilaterally and regular rate & rhythm Airway: Cervical ROM: WNL MP: 1 Dentition: Chipped Pulmonary: Pulmonary: Asthma Anesthetic Plan: ASA status: 1E Anesthesia: General Risk of > 500 ml blood loss (7ml/kg in children): No Meds/Allergies Current Medications: Current Medications Generic Name Dose Route Start Last Admin Trade Name Freq PRN Reason Stop Dose Admin Sodium Chloride 1,000 mls @ 100 m ls/hr 05/21/20 05:52 05/21/20 07:44 Sodium Chloride 0.9% IV 100 mls/hr .Q10H OZIEL Administration Morphine Sulfate 4 mg 05/21/20 05:52 05/21/20 06:15 Morphine IVP 4 mg Q4H PRN Administration SEVERE PAIN PFSH Anesthesia PFSH: Medical History (Updated 05/21/20 @ 07:52 by Robson Goode MD) No pertinent past medical history Surgical History (Updated 05/21/20 @ 07:52 by Robson Goode MD) Leg fracture, right R lower leg hardware Social History (Updated 05/21/20 @ 08:01 by Robson Goode MD) Smoking and tobacco status: never smoked Alcohol intake: current Alcohol type: beer Alcohol use comment: 3-4 beers nightly Data Anesthesia CBC & Chem 7: 05/21/20 04:20 05/21/20 04:20 Other Labs: Laboratory Results - last 48 hr 05/21/20 05/21/20 05/21/20 04:20 04:20 04:20 WBC 18.8 H RBC 5.66 H Hgb 16.5 Hct 48.8 MCV 86.2 MCH 29.2 MCHC 33.8 RDW 12.0 L Plt Count 416 H MPV 9.3 Neut % (Auto) 89.0 Lymph % (Auto) 6.6 [place] % (Auto) 3.8 Eos % (Auto) 0.0 Baso % (Auto) 0.2 Neut # (Auto) 16.76 H Lymph # (Auto) 1.3 [place] # (Auto) 0.7 Eos # (Auto) 0.0 Baso # (Auto) 0.0 Nucleated RBC % (auto) 0 Nucleated RBCs # 0.0 PT INR APTT Sodium 131 L Potassium 3.8 Chloride 94 L Carbon Dioxide 27 Anion Gap 13.8 BUN 8 Creatinine 0.9 GFR Calculation 101.2 Glucose 128 H Calculated Osmolality 270 L Calcium 10.0 Total Bilirubin 0.7 AST 17 ALT 11 Alkaline Phosphatase 66 Total Protein 7.3 Albumin 4.4 Globulin 2.9 Lipase 19 Urine Color Urine Appearance Urine pH Ur Specific [place] Urine Protein Urine Glucose (UA) Urine Ketones Urine Blood Urine Nitrate Urine Bilirubin Urine Urobilinogen Ur Leukocyte Esterase Urine RBC Urine WBC Ur Squamous Epith Cells Amorphous Sediment Urine Bacteria Urine Mucus H. pylori IgG Antibody Negative 05/21/20 05/21/20 05:10 07:00 WBC RBC Hgb Hct MCV MCH MCHC RDW Plt Count MPV Neut % (Auto) Lymph % (Auto) [place] % (Auto) Eos % (Auto) Baso % (Auto) Neut # (Auto) Lymph # (Auto) [place] # (Auto) Eos # (Auto) Baso # (Auto) Nucleated RBC % (auto) Nucleated RBCs # PT 14.50 INR 1.10 APTT 32.4 Sodium Potassium Chloride Carbon Dioxide Anion Gap BUN Creatinine GFR Calculation Glucose Calculated Osmolality Calcium Total Bilirubin AST ALT Alkaline Phosphatase Total Protein Albumin Globulin Lipase Urine Color Yellow Urine Appearance Clear Urine pH 6.5 Ur Specific [place] 1.020 Urine Protein Trace Urine Glucose (UA) Norm Urine Ketones 2+ H Urine Blood Neg Urine Nitrate Negative Urine Bilirubin 1+ H Urine Urobilinogen 1 H Ur Leukocyte Esterase Negative Urine RBC Rare Urine WBC 0-4 H Ur Squamous Epith Cells Rare Amorphous Sediment Not Reportable Urine Bacteria Trace Urine Mucus 2+ H. pylori IgG Antibody Cardiac Studies: No Data to Display
--- NOTE | 2020-05-21 10:57 | PC.CHAP ---
Pastoral Care Encounter/Spiritual Assessment Type of Contact [] Declined plant production manager visit [] Patient/Family/Request visit [] Outpatient visit [x] Follow-up visit [] Physician referral [] Code/Alert [] Routine visit [] Staff referral [] Actively dying [] Patient sleeping [] Family support [] [] Out of room [] Palliative care [] [] Receiving care in room [] Pre-surgical visit [] Trauma [] Long length of stay [] ICU visit [] Other: Relational/Emotional Strength [] Patient feels connected with others/family/visitors/staff [] Distress [] Loneliness/isolation [] Abandonment Spirituality of Patient [] Person of Sweta [] Attends Restoration of their Sweta [] Believes in Prayer [] Reads Bible or Christian materials [] There are Spiritual issues to be addressed Fire Regulator Interventions [] Prayer [] Active listening [] Non-anxious presence [] Spiritual/emotional support [] Crisis/trauma care [] Spiritual counseling [] Bereavement support [] Provided bereavement packet [] Provided Bible/devotional materials [] Provided toy/stuffed animal, coloring book to patient or family member [] Provided Communion [] Anointing/[place] [] Salvation [] Completed spiritual assessment [] Other: Impact on Illness or Injury [] Angry [] Fearful [] Anxious [] Often cries [] Exhaustion [] Unable to work [] Unable to attend church [] Unable to walk/stand [] Unable to read [] Unable to drive [] Unable to eat/drink [] Unable to sleep [] Unable to be with family [] Patient intubated [] Other: Summary Follow-up visit Time spent with patient 5 mins
[2020-05-21] MEDS: sodium chloride 0.9% 1,000 ML 30 ML IV (11:15)
[2020-05-21] MEDS: clindamycin 900 MG/50 ML PREMIX 100 MG IV (11:48)
--- NOTE | 2020-05-21 13:03 | P.OP_ITS ---
Operative Report Date of procedure: May 21, 2020 Pre-op Diagnosis: Ileocolic intussusception with bowel obstruction. Post-op diagnosis: same Procedure Done: Exploratory laparotomy with right hemicolectomy. Specimens removed/disposition: A sending colon with intussuscepted terminal ileum. Surgeon: Robson Goode Anesthesia: General Estimated blood loss (mL): 20 Complications: None. Condition: stable Disposition: PACU Procedure: The patient was brought to the operating room and was placed in a supine position on the operating room table. General endotracheal anesthesia w as induced. A Mathur catheter was inserted. Anesthesia introduced an orogastric tube. The abdomen was prepped and draped in a sterile fashion. A midline incision was carried out in the midepigastrium to a level just below the umbilicus. Cautery was used to divide the subcutaneous tissue and the midline fascia and the peritoneal cavity was entered. Palpation revealed the intussusception mass on the right side of the abdomen. The right colon was mobilized by incising the peritoneal reflection laterally up around the hepatic flexure. This allowed the colon to be moved medially. The duodenum was identified. The patient's terminal ileum was intussuscepted for the last several inches of small bowel and a good distance up the ascending colon. It was congested and pressure was unsuccessful in reducing the intussusception. It was clear a right hemicolectomy was going to be needed. At a suitable point in the transverse colon the colon was divided using a GIOVANNA 55 stapler. The terminal ileum proximal to the intussusception was divided using the same. The intervening mesentery was then divided using the LigaSure. Larger vessels were also ligated with ties of 2-0 or 0 Vicryl. The specimen was removed. The abdomen was irrigated with saline. The ileum and proximal transverse colon were brought side to side in preparation for the formation of a functional end to end anastomosis. The 2 limbs of bowel were held together with some stay sutures of 3-0 Vicryl. A small enterotomy was made at the end of the staple line of the small intestine using cautery. A small colotomy was made in the tenia near the staple line of the colon. An arm of a GIOVANNA 55 stapler was passed down either limb of bowel and was fired, opening the el between the 2 limbs of bowel. The staple lines were transposed and the common opening on the end was closed using a TA 60 stapler. Some stay sutures of 3-0 Vicryl were placed at the proximal end of the staple line to take tension off of the anastomosis at that point. The mesenteric window was closed using a running suture of 3-0 Vicryl. The anastomosis was palpably patent and the bowel was viable. The abdomen was irrigated with several liters of saline. No ongoing problems were seen. The remaining omentum was brought over the bowel and attention was directed towards closure. The midline fascia was closed using a running looped suture of #1 PDS. The subcutaneous tissue was irrigated and the skin was approximated using skin shaunna. A sterile dressing was placed over the wound and the patient was taken to the recovery room in stable condition postoperatively.
--- NOTE | 2020-05-21 14:11 | PC.NURSE ---
Mathur catheter placed in OR Per KERI Linda. Upon arrival to floor, noted Mathur Cath patent/draining, stat lock on right leg and urine pale yellow in color. DAVISW, PAGE DESIGNER
[2020-05-21] MEDS: famotidine 20 mg/2 mL INJ IVP (14:29)
[2020-05-21] MEDS: heparin 5,000 unit/mL INJ 1 mL 5000 UNIT SUBCUT (14:31)
[2020-05-21] MEDS: dextrose 5%-sod chloride 0.45% 1,000 ML 100 ML IV (14:34)
--- NOTE | 2020-05-21 14:57 | PC.NURSE ---
No bowel sounds heard in all 4 quads. SMW, BREASTFEEDING PROGRAM COORDINATOR
[2020-05-21] MEDS: levalbuterol 0.63 mg/3 mL Neb INHALATION ×2 (16:00→20:53)
[2020-05-21] MEDS: ciprofloxacin 200 MG/100 ML PREMIX 100 MG IV (16:11)
--- NOTE | 2020-05-21 18:47 | PC.NURSE ---
Patient is requesting something to eat. Patient educated on NPO status d/t surgery. Patient is aggravated. Will continue to closely monitor. DAVISW, OMERO
[2020-05-22] VITALS (10 sets, daily range): BP systolic 98–124; BP diastolic 54–72; PULSE 67–112; RESP 16–20; TEMP 36.4–37.1; O2SAT 94–100
[2020-05-22] MEDS: famotidine 20 mg/2 mL INJ IVP ×2 (03:22→13:48)
[2020-05-22] MEDS: heparin 5,000 unit/mL INJ 1 mL 5000 UNIT SUBCUT ×2 (03:22→13:54)
[2020-05-22] MEDS: dextrose 5%-sod chloride 0.45% 1,000 ML 100 ML IV ×2 (03:24→13:54)
[2020-05-22] MEDS: ciprofloxacin 200 MG/100 ML PREMIX 100 MG IV ×2 (05:17→17:12)
[2020-05-22 06:09] LABS: Basophils % 0.1 %; Hematocrit 41.8 % (42.0-52.0); Hemoglobin 13.5 g/dL (11.7-16.6); Lymphocytes # 1.1 10^3/uL (0.8-4.8); Lymphocytes % 5.4 %; Mean Corpuscular HGB Conc 32.3 g/dL (30.0-36.0); Mean Corpuscular Hemoglobin 29.2 pg (28.0-34.0); Mean Corpuscular Volume 90.5 fL (80-94); Mean Platelet Volume 10.2 fL (7.4-10.4); Monocytes # 1.7 10^3/uL (0.2-0.9); Monocytes % 8.6 %; Neutrophils # 16.56 10^3/uL (1.8-7.7); Neutrophils % 85.5 %; Nucleated Red Blood Cells % 0 %; Platelet Count 303 10^3/cmm (130-400); Red Blood Count 4.62 10^6/uL (4.1-5.3); Red Cell Distribution Width 12.2 % (12.1-15.1); White Blood Count 19.4 10^3/uL (4.0-10.0)
[2020-05-22] MEDS: metroNIDAZOLE IV 500 MG/100 ML PREMIX 100 MG IV ×3 (06:35→21:40)
[2020-05-22 06:54] LABS: Blood Urea Nitrogen 6 mg/dL (6-20); Calcium 8.6 mg/dL (8.5-10.5); Carbon Dioxide 24 mmol/L (22-29); Chloride 105 mmol/L (98-107); Glomerular Filtration Rate 101.2 mL/min (90-130); Glucose 121 mg/dL (65-115); Osmolality Calculated 281 mOsm/kg (285-295); Sodium 137 mmol/L (136-145)
[2020-05-22 06:55] LABS: Anion Gap 11.7 (5-19); Potassium 3.7 mmol/L (3.5-5.1)
--- NOTE | 2020-05-22 07:00 | PM.PN ---
Subjective Subjective: Interval history: The patient says he feels better now than he did before surgery. He actually says he is passing some flatus and would like something to drink. Vitals/I&O/Wt Last Vital Signs Temp 97.8 F 05/22/20 04:00 Pulse 88 05/22/20 04:00 Resp 18 05/22/20 04:00 BP 102/67 05/22/20 04:00 Pulse Ox 100 05/22/20 04:00 05/21/20 05/22/20 05/22/20 22:59 06:59 14:59 Intake Total 300 / 3350 1000 / 3350 Output Total 1200 / 1310 Balance 300 / 2040 -200 / 2040 Weight last 48 hrs Weight 215 lb Physical Exam Narrative: EXAM NARRATIVE: Bowel sounds are clearly hypoactive but the abdomen is soft and nondistended. The dressing is intact. Urinary Catheter Management^: F: Cath Placed During This Visit: yes Reason for Continuing Indwelling Catheter: Perioperative Use in Selected Surgeries Urinary Catheter Date of Insertion: 05/21/20 Urinary Catheter Time of Insertion: 11:45 Data : 05/22/20 05:48 05/22/20 05:48 A&P Assessment and plan (1) Intussusception of small bowel: Status post right hemicolectomy on 05/21/2020. I will allow the patient some clear liquids but encouraged him to take it slow. We are going to leave the Mathur catheter in until tomorrow; I cannot even feel it. Up in chair today. Status: Acute Attestations Medical Necessity Statement*: Patient requires continued inpatient monitoring following right hemicolectomy. Coding Level of Care Code Acute Branch Service Associate for Zan Conroy Diagnoses Intussusception of small bowel K56.1
[2020-05-22] MEDS: ketorolac 30 mg/mL INJ IVP ×2 (08:22→21:41)
--- NOTE | 2020-05-22 08:29 | ANE.PACU2 ---
Inpatient post-anesthesia follow up: Airway intact: Yes Vital signs: Temperature 98.6 F Pulse Rate [Monito r] 60 Pulse Rate 88 Respiratory Rate 20 Blood Pressure [Ri ght Arm] 142/74 Blood Pressure 106/67 Pulse Oximetry 99 Oxygen Delivery Me thod Room Air Oxygen Flow Rate Fraction of Inspir ed Oxygen Hydration adequate: Yes Nausea and vomiting: No Pain level: 4 Mental status: Baseline
--- NOTE | 2020-05-22 10:54 | PC.CHAP ---
Pastoral Care Encounter/Spiritual Assessment Type of Contact [] Declined retort kiln burner visit [] Patient/Family/Request visit [] Outpatient visit [] Follow-up visit [] Physician referral [] Code/Alert [x] Routine visit [] Staff referral [] Actively dying [] Patient sleeping [] Family support [] [] Out of room [] Palliative care [] [] Receiving care in room [] Pre-surgical visit [] Trauma [] Long length of stay [] ICU visit [] Other: Relational/Emotional Strength [] Patient feels connected with others/family/visitors/staff [] Distress [] Loneliness/isolation [] Abandonment Spirituality of Patient [] Person of Sweta [] Attends Cheondoism of their Sweta [] Believes in Prayer [] Reads Bible or Mormonism materials [] There are Spiritual issues to be addressed Emergency Department Manager Interventions [x] Prayer [x] Active listening [x] Non-anxious presence [x] Spiritual/emotional support [] Crisis/trauma care [] Spiritual counseling [] Bereavement support [] Provided bereavement packet [] Provided Bible/devotional materials [] Provided toy/stuffed animal, coloring book to patient or family member [] Provided Communion [] Anointing/[place] [] Salvation [x] Completed spiritual assessment [] Other: Impact on Illness or Injury [] Angry [] Fearful [] Anxious [] Often cries [] Exhaustion [] Unable to work [] Unable to attend baptist [] Unable to walk/stand [] Unable to read [] Unable to drive [] Unable to eat/drink [] Unable to sleep [] Unable to be with family [] Patient intubated [] Other: Summary Patient had appendix surgery. Still sore, but feeling better Time spent with patient 5 min
[2020-05-22] MEDS: levalbuterol 0.63 mg/3 mL Neb INHALATION (20:30)
[2020-05-23] VITALS (8 sets, daily range): BP systolic 118–121; BP diastolic 68–72; PULSE 72–83; RESP 14–18; TEMP 36.9–37; O2SAT 94–98
[2020-05-23 03:58] LABS: Basophils % 0.3 %; Eosinophils # 0.1 10^3/uL (0.0-0.8); Eosinophils % 0.7 %; Hematocrit 39.9 % (42.0-52.0); Lymphocytes # 1.3 10^3/uL (0.8-4.8); Lymphocytes % 12.8 %; Mean Corpuscular HGB Conc 32.6 g/dL (30.0-36.0); Mean Corpuscular Hemoglobin 29.2 pg (28.0-34.0); Mean Corpuscular Volume 89.7 fL (80-94); Mean Platelet Volume 10.4 fL (7.4-10.4); Monocytes # 1.2 10^3/uL (0.2-0.9); Neutrophils # 7.88 10^3/uL (1.8-7.7); Neutrophils % 74.9 %; Nucleated Red Blood Cells % 0 %; Platelet Count 265 10^3/cmm (130-400); Red Blood Count 4.45 10^6/uL (4.1-5.3); Red Cell Distribution Width 12.5 % (12.1-15.1); White Blood Count 10.5 10^3/uL (4.0-10.0)
[2020-05-23 04:10] LABS: Anion Gap 9.5 (5-19); Blood Urea Nitrogen 6 mg/dL (6-20); Calcium 8.2 mg/dL (8.5-10.5); Carbon Dioxide 26 mmol/L (22-29); Chloride 103 mmol/L (98-107); Creatinine Clr Calc Pharmacy 148.9183; Glucose 119 mg/dL (65-115); Osmolality Calculated 277 mOsm/kg (285-295); Potassium 3.5 mmol/L (3.5-5.1); Sodium 135 mmol/L (136-145)
[2020-05-23] MEDS: dextrose 5%-sod chloride 0.45% 1,000 ML 100 ML IV ×2 (05:16→09:51)
[2020-05-23] MEDS: ciprofloxacin 200 MG/100 ML PREMIX 100 MG IV (05:40)
[2020-05-23] MEDS: metroNIDAZOLE IV 500 MG/100 ML PREMIX 100 MG IV ×2 (05:41→14:13)
[2020-05-23] MEDS: famotidine 20 mg/2 mL INJ IVP (05:42)
[2020-05-23] MEDS: heparin 5,000 unit/mL INJ 1 mL 5000 UNIT SUBCUT (05:42)
[2020-05-23] MEDS: levalbuterol 0.63 mg/3 mL Neb INHALATION ×3 (07:30→13:35)
--- NOTE | 2020-05-23 07:52 | P.PN_ITS ---
Subjective Subjective: Interval history: The patient feels well today. He continues to pass flatus. He still does not have a great appetite, but is tolerating clear liquids. He is asking if there is any chance he can go home today. Vitals/I&O/Wt Last Vital Signs Temp 98.4 F 05/23/20 07:00 Pulse 74 05/23/20 07:38 Resp 16 05/23/20 07:31 BP 121/72 05/23/20 07:00 Pulse Ox 97 05/23/20 07:31 05/22/20 05/23/20 05/23/20 22:59 06:59 14:59 Intake Total 920 / 4970 1000 / 4970 Output Total 1700 / 2575 875 / 2575 Balance -780 / 2395 125 / 2395 Physical Exam Narrative: EXAM NARRATIVE: The midline dressing was removed. The incision looks good. Bowel sounds remain hypoactive. Urinary Catheter Management^: F: Cath Placed During This Visit: yes Reason for Continuing Indwelling Catheter: Perioperative Use in Selected Surgeries Urinary Catheter Date of Insertion: 05/21/20 Urinary Catheter Time of Insertion: 11:45 Data : 05/23/20 03:05 05/23/20 03:05 A&P Assessment and plan (1) Intussusception of small bowel: Status post right hemicolectomy on 05/21/2020. Continue clear liquids. Discontinue Mathur catheter. Ambulate. I told the patient I would return around midday to see how things are going for him. If he is able to at least keep himself hydrated outside of the hospital, I am sure his appetite will eventually return. We will see how he is doing at that time. Status: Acute Attestations Medical Necessity Statement*: Patient requires continued inpatient care for status post right hemicolectomy for intussusception. Coding Level of Care Code Acute Toolroom Clerk for [facility] Marycarmen Diagnoses Intussusception of small bowel K56.1
--- NOTE | 2020-05-23 14:26 | P.DS_ITS ---
Discharge Providers Date of Admission: 05/21/20 05:18 Date of Discharge: May 23, 2020 Attending Provider at Admission: Robson Goode MD Attending Provider at Discharge: Robson Goode MD Primary Care Provider: Winnie León, Destiny at Discharge Discharge Diagnosis (1) Intussusception of small bowel: Status: Acute Problem details: Status post right hemicolectomy on 05/21/2020. Reason for Visit Reason for Visit: ABDOMINAL PAIN Hospital Course Discharge Summary: The patient presented to the emergency room with a 3-day history of abdominal pain. A CAT scan showed ileo-cecal intussusception. The patient was taken for exploration and was found to have a significant portion of his ileum intussuscepted into the ascending colon and it could not be reduced. A right hemicolectomy was performed. Final pathology was still pending at the time of the patient's discharge. Postoperatively, the patient did well. His bowel function returned the following day and he was started on a liquid diet. He tolerated this well and he continued to pass flatus. While his appetite did not improve to the point where he wanted a lot of solid food, he was feeling well on the second postoperative day, was tolerating liquids, and was very anxious to go home. His wound looked good. His Mathur catheter was removed and he urinated spontaneously prior to discharge. He was instructed with respect to wound care, activity limitations, etc. Arrangements will be made for the patient to follow-up with me in my office as an outpatient. Physical Exam Narrative: EXAM NARRATIVE: Midline incision looks good. Bowel sounds present. The patient has the expected amount of tenderness. Urinary Catheter Management^: F: Cath Placed During This Visit: yes, but has since been removed by the nurse Reason for Continuing Indwelling Catheter: Decision to DC Catheter Urinary Catheter Date of Insertion: 05/21/20 Urinary Catheter Time of Insertion: 11:45 Date Urinary Catheter Removed: 05/23/20 Time Urinary Catheter Discontinued: 09:42 Discharge Data Data Completed and Pending: Completed Studies During Hospitalization Category Date Time Status CT abdomen pelvis w con* [id number] Stat Cat Scan 05/21/20 04:06 Completed Pending at discharge Category Date Time Status Pathology: Surgic al [PTH] Routine Pth 05/21/20 13:04 Received Labs from last 24 hours 05/23/20 05/23/20 03:05 03:05 WBC 10.5 H RBC 4.45 Hgb 13.0 Hct 39.9 L MCV 89.7 MCH 29.2 MCHC 32.6 RDW 12.5 Plt Count 265 MPV 10.4 Neut % (Auto) 74.9 Lymph % (Auto) 12.8 [place] % (Auto) 11.0 Eos % (Auto) 0.7 Baso % (Auto) 0.3 Neut # (Auto) 7.88 H Lymph # (Auto) 1.3 [place] # (Auto) 1.2 H Eos # (Auto) 0.1 Baso # (Auto) 0.0 Nucleated RBC % (a uto) 0 Nucleated RBCs # 0.0 Sodium 135 L Potassium 3.5 Chloride 103 Carbon Dioxide 26 Anion Gap 9.5 BUN 6 Creatinine 0.8 GFR Calculation 116.0 Glucose 119 H Calculated Osmolal ity 277 L Calcium 8.2 L Vitals: Last Vital Signs Temp 98.5 F 05/23/20 11:00 Pulse 77 05/23/20 13:36 Resp 18 05/23/20 13:25 BP 118/68 05/23/20 11:00 Pulse Ox 98 05/23/20 13:25 Discharge Plan Discharge Patient Disposition: Home Condition: Stable Prescriptions: New hydrocodone-acetaminophen 5-325 mg tablet 1 - 2 tab PO Q5H PRN (Reason: pain) Qty: 30 RF: 0 Discharge Orders: Discharge Order (Routine); Ordered 05/23/20 Ordered By: Robson Goode Referrals: Robson Goode MD [Physician] - 2 weeks Winnie León MD [Primary Care Provider] - Discharge Diet: Advance as tolerated Discharge Activity: Limit activity as instructed Activity Restrictions/Additional Instructions: 1. Discharge to home today. 2. Appointment to see Dr. Goode in 10-14 days as above. 3. May shower, okay to get incision wet. 4. [place] 5/325 1-2 tablets by mouth every 5 hours as needed for pain. #30, no refills. My activity Discharge Attestations Time Spent in Discharge Care*: less than 30 min Quality Metrics Clinical Quality Measures During this hospital stay, did patient experience: None Coding Level of Care Code Acute Leveler Helper for [facility] Fwd Diagnoses Intussusception of small bowel K56.1
== END 2020-05-23 15:12 | disposition home or self-care (01) | DRG 331 ==
LOC: ER 05:22 → MEDSURG 05:23
PROVIDERS: Emergency Medicine; Admitting Provider Surgery; PCP Family Medicine; Visit Provider Surgery
PROC: 0DTF4ZZ Resection of Right Large Intestine, Percutaneous Endoscopic Approach (ICD-10-PCS; CPT 49000; principal; 2020-05-21 11:00)
PROC: 0DTF4ZZ Resection of Right Large Intestine, Percutaneous Endoscopic Approach (ICD-10-PCS; 2020-05-21 11:00)
DX: K56.1 Intussusception (principal)
CPT/HCPCS: 12345; 36415; 51702; 74177; 80048; 80053; 81001; 83690; 85025; 85610; 85730; 86677; 88309; 94640; 96372; 96375; 99283; C9290; G0378; J0131; J0330; J0744; J1100; J1644; J1885; J2250; J2270; J2405; J2704; J2710; J3010; J3490; J7030; J7614; J7799; S0030

== ENCOUNTER 2020-06-27 20:16 | Emergency (ER) | payer SELFPAY ==
[2020-06-27 20:30] VITALS: BP 121/78; PULSE 108; RESP 18; TEMP 36.3; O2SAT 100; BMI 41.1
--- NOTE | 2020-06-27 20:54 | W.ED.SKABFB ---
HPI - Skin/Abscess/Foreign Bdy General: Chief complaint: Skin/Abscess/Foreign Body Stated complaint: possible spider bite on face Time Seen by Provider: 06/27/20 20:36 Source: patient Mode of arrival: ambulatory Limitations: no limitations History of Present Illness: HPI narrative: 22-year-old male who states he noticed an abscess to the left side of his face that started today. He states he had some yellow drainage from it. Denies any fever. He does have slight pain he rates a 3 out of 10. Denies any worsening improving factors. Associated symptoms: Deny chills, fever(s), nausea or vomiting Review of Systems Const: Denies: fever(s), chills, body aches or change in appetite Eyes: Denies: blurry vision or eye discomfort ENMT: Denies: throat pain or dental pain Card: Denies: chest pain Resp: Denies: dyspnea GI: Denies: abdominal pain, nausea, vomiting or diarrhea : Denies: dysuria Musc: Denies: neck pain or back pain Skin/Breast: Denies: rash Neuro: Denies: headache(s) Psych: Denies: depression Chance/Lymph: Denies: easy bruising All/Imm: Denies: urticaria PFSH ED PFSH: Medical History Intussusception of small bowel Status post right hemicolectomy on 05/21/2020. No pertinent past medical history Surgical History Leg fracture, right R lower leg hardware Social History Smoking and tobacco status: never smoked Alcohol intake: current Alcohol type: beer Physical Exam Const: COMMON NORMALS: no acute distress, patient oriented x3 and healthy appearing HENMT: COMMON NORMALS: normocephalic and atraumatic HEAD & SCALP: normocephalic and atraumatic Eye: COMMON NORMALS: Equal, round and reactive pupils present and EOMs intact bilaterally PUPIL: Yes Equal, round and reactive pupils present Neck/C-Spine: COMMON NORMALS: full ROM and supple Chest: COMMONS NORMALS: normal inspection of the chest and normal palpation of entire chest wall Resp: COMMON NORMALS: normal respiratory effort, No retractions, No use of accessory muscles and clear to auscultation bilaterally AUSCULTATION: clear to auscultation bilaterally Cardio: COMMON NORMALS: regular rate, regular rhythm and No murmurs present (Cardio) RATE: regular rate RHYTHM: regular rhythm GI: COMMON NORMALS: Normal to inspection, nondistended, normoactive bowel sounds present, Soft to palpation, non-tender and no masses PALPATION: Yes Soft to palpation Extremity: COMMON NORMALS: normal to inspection and full ROM Neuro: COMMON NORMALS: patient oriented x3, moves all extremities and no focal motor deficits Psych: COMMON NORMALS: mental status grossly normal, Normal thought process present and cooperative THOUGHT PROCESS: Normal thought process present Skin: COMMON NORMALS: no wounds Procedures Abscess I/D Site: face Side (if applicable): left Local Anesthetic: lidocaine 1% Amount of anesthesia used (mL): 5 Technique: incised with #11 blade Packing used?: none Course Vital Signs: Vital signs: Vital Signs Temperature 97.3 F L 06/27/20 20:30 Pulse Rate 108 H 06/27/20 20:30 Respiratory Rate 18 06/27/20 20:30 Blood Pressure 121/78 06/27/20 20:30 Pulse Oximetry 100 06/27/20 20:30 MDM - Skin/Abscess/Foreign Bdy MDM Narrative: Medical decision making narrative: pt presents here with abscess to his face. abscess was incised and drained. will place on abx. he is stable for discharge and is to follow up with pcp and return if worsening. Discharge Plan Discharge Patient Disposition: Home Clinical Impression: Abscess of skin or subcutaneous tissue Qualifiers: Site of cutaneous abscess: face Qualified Code(s): L02.01 - Cutaneous abscess of face Condition: Stable Prescriptions: New Bactrim DS 800-160 mg tablet 1 tab PO BID 10 Days Qty: 20 RF: 0 No Action hydrocodone-acetaminophen 5-325 mg tablet 1 - 2 tab PO Q5H PRN (Reason: pain) Qty: 30 RF: 0 Discharge Orders: Discharge Order (Routine); Ordered 06/27/20 Ordered By: Chelsi Perez Referrals: Winnie León MD [Primary Care Provider] - 1-3 days Discharge Diet: Advance as tolerated Discharge Activity: Resume usual activity Patient Instructions: Abscess (ED) Coding Level of Care Code ED Machine Tool Builder for Chg Fwd
[2020-06-27 21:04] VITALS: RESP 16
== END 2020-06-27 21:07 | disposition home or self-care (01) ==
PROVIDERS: Emergency Provider Emergency Medicine; PCP Family Medicine
DX: L02.01 Cutaneous abscess of face (principal)
CPT/HCPCS: 10060; 12345; 99281; 99282

== ENCOUNTER 2020-08-27 13:09 | Emergency (ER) | payer SELFPAY ==
[2020-08-27 13:12] VITALS: BP 122/79; PULSE 103; RESP 17; TEMP 36.7; O2SAT 98; BMI 40.6
[2020-08-27 13:32] VITALS: BP 121/76; RESP 18; O2SAT 99
--- NOTE | 2020-08-27 13:33 | ED_ITS ---
HPI - Skin/Abscess/Foreign Bdy General: Chief complaint: Skin/Abscess/Foreign Body Stated complaint: ABSCESS ON L SIDE OF FACE Time Seen by Provider: 08/27/20 13:31 History of Present Illness: HPI narrative: Patient is a 30-year-old male comes to the ED with abscess on left side of face. Patient was seen here for same complaint on June 27 and I&D was performed and patient was put on Bactrim. Patient says that abscess resolved. 3 days ago patient shaved and yesterday he noticed he had a small pimple on the inside of his cheek. This morning woke up and his left cheek was swollen and red and he popped the white pimple and pus came out. He came to the ED to get abscess evaluated. Associated symptoms: Deny chills, fever(s), nausea or vomiting Review of Systems Const: Denies: fever(s), chills or fatigue Eyes: Denies: change in vision or eye discomfort ENMT: Denies: throat pain, odynophagia, nasal discharge or nasal congestion Card: Denies: chest pain, palpitations, edema, swelling of feet/ankles, dyspnea on exertion or orthopnea Resp: Denies: dyspnea, productive cough or non-productive cough GI: Denies: abdominal pain, nausea, vomiting, diarrhea, constipation or hematochezia : Denies: flank pain, difficulty urinating, dysuria or hematuria Musc: Denies: neck pain, back pain or extremity swelling Skin/Breast: Reports: new lesions (abscess on left buccal region); Denies: rash Neuro: Denies: headache(s), numbness in extremities or weakness in extremities [facility] ED PFSH: Medical History Intussusception of small bowel Status post right hemicolectomy on 05/21/2020. No pertinent past medical history Surgical History Leg fracture, right R lower leg hardware Social History Smoking and tobacco status: never smoked Alcohol intake: never Substance/Drug Use: never Physical Exam Const: COMMON NORMALS: no acute distress, patient oriented x3 and alert GENERAL APPEARANCE: cooperative and comfortable HENMT: COMMON NORMALS: normocephalic HEAD & SCALP: normocephalic FACE & SINUS: erythema on the left maxilla (left buccal region), fluctuance (left buccal region) and Facial tenderness on exam of face and sinuses on the left maxilla (abscess- Tender, warm, erythematous, flunctuate and non indurated nodule on left buccal region of face) MOUTH: Normal oral and palatal mucosa present THROAT: posterior oropharynx normal and uvula midline Neck/C-Spine: COMMON NORMALS: supple GENERAL: Yes normal visual inspection Resp: COMMON NORMALS: normal respiratory effort, No retractions, No use of accessory muscles and clear to auscultation bilaterally AUSCULTATION: clear to auscultation bilaterally Cardio: COMMON NORMALS: regular rate, regular rhythm, S1 normal heart sound present, S2 normal heart sound present, No gallops present (Cardio), No clicks present (Cardio), No murmurs present (Cardio) and Peripheral pulses 2+ throughout RATE: regular rate RHYTHM: regular rhythm HEART SOUNDS: S1 normal heart sound present and S2 normal heart sound present PERIPHERAL PULSES: Peripheral pulses 2+ throughout GI: COMMON NORMALS: Normal to inspection, nondistended, normoactive bowel sounds present, Soft to palpation, non-tender and no masses PALPATION: Yes Soft to palpation : COMMON NORMALS: Yes no CVA tenderness BLADDER/KIDNEY EXAM: Yes no CVA tenderness Back/Pelvis: COMMON NORMALS: no CVA tenderness Extremity: COMMON NORMALS: normal to inspection Neuro: COMMON NORMALS: patient oriented x3 and moves all extremities SENSORIUM/ORIENTATION: Yes alert Skin: NARRATIVE SKIN EXAM: abscess- Tender, warm, erythematous, flunctuate and non indurated nodule on left buccal region of face. GENERAL SKIN EXAM: dry skin Procedures Abscess I/D Site: face (left buccal region) Side (if applicable): left Sedation/analgesia: none Local Anesthetic: lidocaine 1% Amount of anesthesia used (mL): 10 Technique: incised with #11 blade Amount of fluid expressed (mL): 4 Irrigation: Yes Packing used?: none Course Vital Signs: Vital signs: Vital Signs Temperature 98.1 F 08/27/20 13:12 Pulse Rate 100 08/27/20 14:32 Respiratory Rate 17 08/27/20 14:32 Blood Pressure 124/77 08/27/20 14:32 Pulse Oximetry 99 08/27/20 14:32 MDM - Skin/Abscess/Foreign Bdy MDM Narrative: Medical decision making narrative: Patient is a 22-year-old male comes to the ED with an abscess on left buccal region of face. I&D was performed and approximately 4 mL of purulent drainage removed. No packing was placed and incision area was left open to allow for more drainage. Abscess culture and Gram stain collected and results pending. Patient was put on a prescription of clindamycin. Return to ED precautions given. Follow-up with PCP in 5-7 days for reevaluation. Patient understood and agreed with plan. Discharge Plan Discharge Patient Disposition: Home Clinical Impression: Abscess Condition: Stable Prescriptions: New clindamycin HCl 150 mg capsule 300 mg PO QID 7 Days Qty: 56 RF: 0 No Action No Known Home Medications RF: 0 Discharge Orders: Discharge Order (Routine); Ordered 08/27/20 Ordered By: Jessee Vergara Referrals: Winnie León MD [Primary Care Provider] - Discharge Diet: Regular Discharge Activity: Resume usual activity Patient Instructions: Abscess Incision and Drainage (ED), Abscess (ED) Activity Restrictions/Additional Instructions: Follow-up with medical provider as directed. Have abscess reevaluated in 5 to 7 days by medical provider. Take full course of antibiotics as prescribed. Return to the ER or your medical provider if condition worsens. Please read and understand discharge instructions. If any questions, please ask. Coding Level of Care Code ED Master Steam Yacht for Zan Fwd Exam Comprehensive
[2020-08-27] MEDS: lidocaine 1% INJ 20 mL INJECTION (13:37)
[2020-08-27] MEDS: clindamycin 150 mg Capsule 300 MG PO (14:24)
[2020-08-27 14:32] VITALS: BP 124/77; PULSE 100; RESP 17; O2SAT 99
== END 2020-08-27 14:33 | disposition home or self-care (01) ==
PROVIDERS: Emergency Provider Physician Assistant; PCP Family Medicine
DX: K12.2 Cellulitis and abscess of mouth (principal)
CPT/HCPCS: 12345; 40800; 87070; 87075; 87077; 87186; 87205; 99281; 99283

== ENCOUNTER 2020-11-15 09:38 | Emergency (ER) | payer SELFPAY ==
[2020-11-15 09:40] VITALS: BP 127/62; PULSE 92; RESP 19; TEMP 36.8; O2SAT 99; BMI 35.5
--- NOTE | 2020-11-15 09:43 | XR_ITS ---
WS: [id number] Portable AP upright chest, 11/15/2020 Clinical Data: dyspnea/cough Comparison: None. Findings: No nodules, masses or effusions are seen. The heart is normal. The pulmonary vascularity is not increased. No pneumonia or pneumothorax is seen. Monitor leads are on the chest wall. XR/XR chest 1V portable [id number] Impression: Negative chest.
--- NOTE | 2020-11-15 09:43 | ECG_ITS ---
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 Measurements Intervals [place] Rate: 73 P: 57 PA: 158 QRS: 85 QRSD: 118 T: 64 QT: 351 QTc: 387 Interpretive Statements SINUS RHYTHM WITH MARKED SINUS ARRHYTHMIA INCOMPLETE RIGHT BUNDLE BRANCH BLOCK [90+ ms QRS DURATION, TERMINAL R IN V1/V2, 40+ ms S IN I/aVL/V4/V5/V6] No previous ECG available for comparison Electronically Signed On 11-16-2020 10:58:49 [employer]ASHER [employer]AT by Florentino Dexter M.D. [id number] f
--- NOTE | 2020-11-15 09:59 | ED_ITS ---
HPI - Chest Pain General: Chief Complaint: Psychiatric Symptoms Stated Complaint: chest pain Time Seen by Provider: 11/15/20 09:40 History of Present Illness: HPI narrative: 30-year-old male presents emergency room with complaint of chest pain. Chest pain began while he was in nursing home rest. Sudden onset of chest pain with no radiation. Pain is reproducible with palpation to the anterior chest wall he does have very mild shortness of breath and produces pain when he takes a deep breaths. He is not diabetic is no history of hypertension no history of previous heart disease or arrhythmias. Patient also mentions he is suicidal and tried to cut his wrists in nursing home. This evidently happened yesterday. MD complaint: chest pain Onset (ago): minute(s) Onset: during rest Pain location: left chest Pain radiation: none Severity: mild Quality: tightness and sharp Relieving factors: nothing Exacerbating factors: nothing Associated symptoms: Reports dyspnea; Deny abdominal pain, diaphoresis, fever(s), leg edema, nausea, palpitations, sense of impending doom, syncope or vomiting Review of Systems Const: Denies: fever(s) or diaphoresis ENMT: Denies: throat pain, ear or mastoid pain, nasal discharge or nasal congestion Card: Denies: palpitations or syncope Resp: Reports: dyspnea GI: Denies: abdominal pain, nausea or vomiting : Denies: flank pain, dysuria, urinary frequency or urinary urgency Skin/Breast: Denies: rash or pruritus REPLACED BY [facility] ED PFSH: Medical History (Updated 11/16/20 @ 12:12 by Oz Dickens DO) Intussusception of small bowel Status post right hemicolectomy on 05/21/2020. No pertinent past medical history Surgical History Leg fracture, right R lower leg hardware Social History Smoking and tobacco status: never smoked Alcohol intake: never Physical Exam Const: COMMON NORMALS: no acute distress GENERAL APPEARANCE: cooperative and comfortable ORIENTATION/CONSCIOUSNESS: Yes awake, Yes oriented to person, Yes oriented to place and Yes oriented to time HENMT: COMMON NORMALS: normocephalic, atraumatic and hearing grossly normal bilaterally HEAD & SCALP: normocephalic and atraumatic Neck/C-Spine: COMMON NORMALS: no JVD Resp: COMMON NORMALS: normal respiratory effort, No retractions, No use of accessory muscles and clear to auscultation bilaterally AUSCULTATION: clear to auscultation bilaterally Cardio: COMMON NORMALS: no JVD, regular rate, regular rhythm and No murmurs present (Cardio) RATE: regular rate RHYTHM: regular rhythm GI: COMMON NORMALS: Soft to palpation and No hepatosplenomegaly present AUSCULTATION: Yes normoactive bowel sounds PALPATION: Yes Soft to palpation, No Tenderness to palpation present (GI), No Guarding due to palpation present (GI) and Yes No hepatosplenomegaly present Extremity: COMMON NORMALS: normal to inspection, capillary refill normal, no clubbing, cyanosis or edema, no calf tenderness and no pedal edema Neuro: SENSORIUM/ORIENTATION: Yes oriented to person, Yes oriented to place and Yes oriented to time Skin: COMMON NORMALS: no rashes or lesions noted GENERAL SKIN EXAM: no rashes or lesions noted Course Vital Signs: Vital signs: Vital Signs Temperature 98.2 F 11/15/20 09:40 Pulse Rate 92 11/15/20 12:22 Respiratory Rate 18 11/15/20 12:22 Blood Pressure 127/62 11/15/20 12:22 Pulse Oximetry 99 11/15/20 12:22 MDM - Chest Pain MDM Narrative: Medical decision making narrative: Patient presented initially with a complaint of chest pain. And began to anticipate that we would not be admitting him he then stated he was suicidal. We arranged for him to be on suicide watch at the nursing home. After this he became quite upset and then stated he was hearing voices. Discussed with Dr. Geronimo because of the presenting issues and surrounding it question to sincerity in this. Dr. Geronimo formally consulted and came down and seen the patient was his opinion that the patient could be watched at the nursing home as far as a suicide issues. Given the patient's presenting complaint and the way he vocalized the complaint he did not feel he was actually having auditory loose [place] and advised that he could be discharged back to the nursing home. A few minutes after this patient began choking himself while he was still in the handcuffs. Patient was restrained in a way so that he could not choke himself. I called Dr. Geronimo back he stated that behavior was not unexpected that the patient was just continually escalating in an attempt to force an admission. He still felt the patient could safely be transferred back to nursing home where he could be observed. Patient did vocalize after that this that he was doing what ever it would take to become admitted because he did not want to go back to the nursing home. Advised him that we cannot admit her under those hospices and he was discharged back with law force. Lab Data: Labs: Lab Results 11/15/20 11/15/20 11/15/20 Range/Units 10:05 10:05 10:05 WBC 8.3 (4.0-10.0) 10^3/ uL RBC 5.31 H (4.1-5.3) 10^6/u L Hgb 15.6 (11.7-16.6) g/dL Hct 47.3 (42.0-52.0) % MCV 89.1 (80-94) fL MCH 29.4 (28.0-34.0) pg MCHC 33.0 (30.0-36.0) g/dL RDW 12.7 (12.1-15.1) % Plt Count 310 (130-400) 10^3/c mm MPV 8.8 (7.4-10.4) fL Neut % (Auto) 70.7 % Lymph % (Auto) 18.4 % [place] % (Auto) 6.7 % Eos % (Auto) 3.4 % Baso % (Auto) 0.7 % Neut # (Auto) 5.89 (1.8-7.7) 10^3/u L Lymph # (Auto) 1.5 (0.8-4.8) 10^3/u L [place] # (Auto) 0.6 (0.2-0.9) 10^3/u L Eos # (Auto) 0.3 (0.0-0.8) 10^3/u L Baso # (Auto) 0.1 (0.0-0.1) 10^3/u L Nucleated RBC % (a uto) 0 % Nucleated RBCs # 0.0 /100WBC Sodium 137 (136-145) mmol/L Potassium 3.6 (3.5-5.1) mmol/L Chloride 101 (98-107) mmol/L Carbon Dioxide 28 (22-29) mmol/L Anion Gap 11.6 (5-19) BUN 10 (6-20) mg/dL Creatinine 0.7 (0.7-1.2) mg/dL GFR Calculation 134.3 H (90-130) mL/min Glucose 87 (65-115) mg/dL Calculated Osmolal ity 282 L (285-295) mOsm/k g Calcium 9.8 (8.5-10.5) mg/dL Total Bilirubin 1.0 (0.15-1.2) mg/dL AST 14 (0-40) U/L ALT 15 (0-41) U/L Alkaline Phosphata se 77 (40-130) IU/L Troponin T Baselin e 6 (0-15) ng/L Total Protein 7.6 (6.6-8.7) g/dL Albumin 4.4 (3.5-5.2) g/dL Globulin 3.2 (1.3-4.6) g/dL Discharge Plan Discharge Patient Disposition: Home Clinical Impression: Atypical chest pain, Suicidal ideation, Depression, Malingering Condition: Stable Prescriptions: No Action No Known Home Medications RF: 0 Discharge Orders: Discharge ED (Routine); Ordered 11/15/20 Ordered By: Oz Dickens Referrals: Winnie León MD [Primary Care Provider] - Discharge Diet: Usual diet Discharge Activity: Resume usual activity Activity Restrictions/Additional Instructions: Patient will be on suicide watch at the nursing home. Reviewed findings with the patient. Follow-up as needed. Coding Level of Care Code ED Food Inspector for Zan Fwd Exam Comprehensive
[2020-11-15 10:13] VITALS: BP 127/62; PULSE 75; RESP 16; O2SAT 99
[2020-11-15 10:16] LABS: Basophils # 0.1 10^3/uL (0.0-0.1); Basophils % 0.7 %; Eosinophils # 0.3 10^3/uL (0.0-0.8); Eosinophils % 3.4 %; Hematocrit 47.3 % (42.0-52.0); Hemoglobin 15.6 g/dL (11.7-16.6); Lymphocytes # 1.5 10^3/uL (0.8-4.8); Lymphocytes % 18.4 %; Mean Corpuscular Hemoglobin 29.4 pg (28.0-34.0); Mean Corpuscular Volume 89.1 fL (80-94); Mean Platelet Volume 8.8 fL (7.4-10.4); Monocytes # 0.6 10^3/uL (0.2-0.9); Monocytes % 6.7 %; Neutrophils # 5.89 10^3/uL (1.8-7.7); Neutrophils % 70.7 %; Nucleated Red Blood Cells % 0 %; Platelet Count 310 10^3/cmm (130-400); Red Blood Count 5.31 10^6/uL (4.1-5.3); Red Cell Distribution Width 12.7 % (12.1-15.1); White Blood Count 8.3 10^3/uL (4.0-10.0)
--- NOTE | 2020-11-15 10:18 | PC.NURSE ---
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
[2020-11-15 10:42] LABS: Alanine Aminotransferase 15 U/L (0-41); Albumin Level 4.4 g/dL (3.5-5.2); Alkaline Phosphatase 77 IU/L (40-130); Anion Gap 11.6 (5-19); Aspartate Amino Transferase 14 U/L (0-40); Blood Urea Nitrogen 10 mg/dL (6-20); Calcium 9.8 mg/dL (8.5-10.5); Carbon Dioxide 28 mmol/L (22-29); Chloride 101 mmol/L (98-107); Globulin 3.2 g/dL (1.3-4.6); Glomerular Filtration Rate 134.3 mL/min (90-130); Glucose 87 mg/dL (65-115); Osmolality Calculated 282 mOsm/kg (285-295); Potassium 3.6 mmol/L (3.5-5.1); Sodium 137 mmol/L (136-145); Total Protein 7.6 g/dL (6.6-8.7)
[2020-11-15 11:02] LABS: Troponin(5th) Baseline 6 ng/L (0-15)
[2020-11-15 11:13] VITALS: BP 127/62; PULSE 92; RESP 18; O2SAT 99
[2020-11-15 12:22] VITALS: BP 127/62; PULSE 92; RESP 18; O2SAT 99
== END 2020-11-15 12:23 | disposition home or self-care (01) ==
PROVIDERS: Emergency Provider Family Medicine; PCP Family Medicine
DX: R07.89 Other chest pain (principal); R45.851 Suicidal ideations; F32.9 Major depressive disorder, single episode, unspecified; Z76.5 Malingerer [conscious simulation]
CPT/HCPCS: 12345; 71045; 80053; 84484; 85025; 93005; 99284